=== PATIENT | female | born 1990 | race Caucasian/White ===

== ENCOUNTER 2021-06-06 15:52 | Outpatient (CLI) | payer OTHER, SELFPAY ==
--- NOTE | ~2021-06-06 | US_ITS ---
EXAMINATION: US OB <=14 wk fetus w TV EXAM DATE: 06/06/2021 16:36 INDICATION: Pelvic pain. Uncertain dates. 1st trimester. TECHNIQUE: Pelvic obstetrical transabdominal sonogram was performed by a technologist. There are mu ltiple grayscale and Doppler images available for interpretation. There are no earlier studies of th is gestation for comparison. FINDINGS: Uterus measures 9.6 x 5.9 x 6.6 cm. There is intrauterine gestation sac, mean sac diameter 2.9 cm corresponding to estimated gestational age 8 weeks 0 days. There is abnormal small yolk sac id entified and discordant size of possible pole measuring 5 mm in length for estimated age 6 week s 2 days, no heart rate identified. There is small subchorionic hematoma measuring 1.1 x 0.7 x 0.6 cm. There is a cystic right ovarian lesion measuring 1.1 x 1.3 x 1.4 cm with mild complexity, no yolk sac or pole identified within this. Probably the corpus luteal cyst. There is surrounding hypervas cularity. Left ovary is morphologically normal with low resistance Doppler flow confirmed. IMPRESSION: 1. Intrauterine gestation sac with discordant sac and pole sizes, no cardiac activity id entified and small subchorionic hematoma. Poor prognostic indicators for this . 2. Right ovarian cystic lesion probably corpus luteal cyst. 3. Follow-up as indicated clinically. Reviewed, dictated and finalized at location B. [employer] IMPRESSION: 1. Intrauterine gestation sac with discordant sac and pole sizes, no fet al cardiac activity identified and small subchorionic hematoma. Poor prognostic indicators for this . 2. Right ovarian cystic lesion probably corpus luteal cyst. 3. Follow-up as indicated clinically.
== END 2021-06-06 15:53 | disposition home or self-care (01) ==
PROVIDERS: Visit Provider Nurse Practitioner
DX: R10.2 Pelvic and perineal pain (principal); Z36.87 Encounter for antenatal screening for uncertain dates
CPT/HCPCS: 36415; 76801; 76817; 84702; 86850; 86900; 86901

== ENCOUNTER 2021-06-09 15:51 | Outpatient (CLI) | payer OTHER, SELFPAY | END 2021-06-09 15:52 | disposition home or self-care (01) | LOC: ANHLAB 15:54 | PROVIDERS: Visit Provider Nurse Practitioner | DX: O20.0 Threatened abortion (principal); Z3A.00 Weeks of gestation of pregnancy not specified | CPT/HCPCS: 36415; 84702 ==

== ENCOUNTER → 2021-06-10 08:14 | Outpatient (CLI) | payer OTHER, SELFPAY ==
[2021-06-10 16:44] LABS: SARS-CoV-2 RNA PCR Negative
== END ==
PROVIDERS: Visit Provider Obstetrics & Gynecology Gynecology
DX: Z01.812 Encounter for preprocedural laboratory examination (principal); Z20.822 Contact with and (suspected) exposure to COVID-19
CPT/HCPCS: C9803; U0003; U0005

== ENCOUNTER 2021-06-12 01:49 | Day surgery (SDC) | payer OTHER, SELFPAY ==
[2021-06-10 09:53] VITALS: BMI 22.7
--- NOTE | 2021-06-10 10:01 | PC.NURSE ---
Report to the Outpatient Waiting Room, entrance under the green pavilion located off [facility], at time 0730 on date 06/12/21. OR Time: 09. - You will be asked a series of questions to screen for COVID 19 for your protection. - A mask is required within the hospital. - One visitor is allowed at this time. Preoperative COVID Testing Requirements: COVID TEST 06/10 AT 0930 No COVID Test needed if: (proof is required; if not received patient will have Rapid Test prior to entry) - Patient has received COVID Vaccine at least 14 days prior to procedure date or - Patient has positive COVID test result within last 90 days of surgery date. COVID Test needed if above criteria is not met If not COVID vaccinated a COVID test must be conducted within 72 hours of surgery and patient is asked to isolate self from time of testing until procedure. You will go to the [facility] for your COVID testing. The [facility] is located at the corner of [address] [facility]. You will only be called if COVID results are positive and your surgeon may reschedule your elective surgery date. Patients may have clear liquids (water, carbonated beverages, clear teas, apple juice) until 3 hours prior to surgery with a maximum of 20 ounces. - No food from midnight until time of surgery Take the following medications with a SIP of water the morning of surgery: NONE Medications to discontinue per physician: N/A Date to take last dose: N/A Please no make-up, nail indonesian, hairspray, perfume, deodorant, or body powder the day of surgery. No jewelry (including any body piercings) or valuables the day of surgery, leave them at home. Please take a shower or bath the night before, or the morning of, surgery with an antibacterial soap. Wear comfortable, loose fitting clothing. - Jewelry must be removed prior to entering the operating room. Rings and piercings that are not removed may be cut off. - The hospital will not accept responsibility for valuables. - Please leave all valuables, including medications, at home the day of surgery. If you are going home after surgery, a licensed route salesman and driver must drive you home. - NO public transportation without another adult. - We recommend that an adult stay with you for 24 hours following discharge. - We also recommend that you do not drive, make important decision, drink alcoholic beverages, or take any drugs that were not prescribed by your health care provider for at least 24 hours after your discharge time. Follow any additional instructions given to you from your surgeon. Telephone instructions given to ARABELLA MOSHER and asked if any additional questions and then verbalized understanding. Patient advised to call surgeon office or pre surgery nurse liaison [phone] if any additional questions.
--- NOTE | 2021-06-12 08:00 | PM.HPGS ---
History of Present Illness History of Present Illness Consent: Risks, benefits, and alternatives have been discussed and questions answered. Patient agrees to proceed with procedure. Chief complaint: missed AB Narrative: Tory Duque is a 31 year old female A1 with missed Ab. Pelvic u/s showed 8 week sac and 6 week pole. HCG is decreasing. Options reviewed. Patient chooses to proceed with suction D&C. Risks of infection, bleeding, perforation, and injury to organs discussed with patient. She agrees to proceed. Review of Systems Review of Systems: not repeated day of surgery; patient states no changes in status [facility] Past Medical History Medical History (Updated 06/12/21 @ 08:04 by Rachel Cannon MD) Tibia/fibula fracture Surgical History Surgical History (Updated 06/12/21 @ 08:03 by Rachel Cannon MD) History of Social History Social History Smoking status: Former smoker Tobacco type: cigarettes Smoking end date: 11/24/20 Additional smoking assessment comments: SOCIAL SMOKER Alcohol intake: current Alcohol use details: 2/MONTH (WHEN NOT ) Substance use: never Substance use type: does not use Living arrangements: with family Spiritual care concerns: No Meds Home Medications and Allergies Home Medications Medication Instructions Recorded Confirmed Type No Home Medications 06/10/21 06/10/21 History Allergies Allergy/AdvReac Type Severity Reaction Status Date / Time morphine Allergy Hives Verified 06/12/21 08:00 Exam Const: General: healthy appearing and alert Orientation/consciousness: patient oriented x3 GI: GI Palp: Yes Soft to palpation, No Tenderness to palpation present (GI) and No Palpable mass present : External Female Exam: normal external appearance Speculum Exam - Vagina: normal appearance of the vagina and normal vaginal discharge Speculum Exam - Cervix: normal appearance of the cervix Bimanual exam- vagina & uterus: uterine size normal and consistency normal Bimanual Exam- Adnexa, other: normal adnexae and No adnexal tenderness Neuro: General: patient oriented x3 Assessment and Plan Assessment and plan (1) Missed : Code(s): O02.1 - Missed Status: Acute Assessment and Plan: Plan to proceed with suction D&C
[2021-06-12] MEDS: LACTATED RINGERS 1,000 ML 30 ML IV CONT (08:14)
[2021-06-12] MEDS: ACETAMINOPHEN 500 MG TABLET 1000 MG PO (08:14)
--- NOTE | 2021-06-12 08:18 | P.PNAN_ITS ---
Anes - Initial Pre Proc Eval Procedure: Operation Date: 06/12/21 09:30 Proposed Procedures p Suction Dilatation and Curettage - Rachel Cannon MD Date/Time: 06/12/21 08:18 Surgeon: Rachel Cannon MD Pre Op Diagnosis: missed AB Patient Data Age: 31 Gender: F Height: 1.7 m Weight: 65.77 kg Allergies Allergy/AdvReac Type Severity Reaction Status Date / Time morphine Allergy Hives Verified 06/12/21 08:00 Home Medications Medication Instructions Recorded Confirmed Type No Home Medications 06/10/21 06/10/21 History Patient hx anesthesia problems: none Family hx anesthesia problems: none Results Review: All pre-operative results and documents have been reviewed as part of the pre-operative evaluation. [facility] Past Medical History Medical History Tibia/fibula fracture Surgical History Surgical History History of Social History Social History Smoking status: Former smoker Tobacco type: cigarettes Smoking end date: 11/24/20 Additional smoking assessment comments: SOCIAL SMOKER Alcohol intake: current Alcohol use details: 2/MONTH (WHEN NOT ) Substance use: never Substance use type: does not use Living arrangements: with family Spiritual care concerns: No Anes - Eval Final PreProcedure Day of Procedure 06/12/21 08:18 Patient weight: normal Heart: regular rate and rhythm Lungs: clear to auscultation Airway: Mallampati scale class II Neurological: alert and oriented Last oral intake: >/= 8 hours ASA classification: II Emergent: no Anesthetic plan: proceed Anesthesia type and monitoring: general GIVS and standard monitoring Results Review: All pre-operative results and documents have been reviewed as part of the pre-operative evaluation. Informed Consent: The patient's anesthetic plan and its attendant risks and benefits were discussed with the patient/family/POA. Questions were solicited and answers provided to the satisfaction of the patient/family/POA.
[2021-06-12 08:27] VITALS: BP 119/70; PULSE 77; RESP 16; TEMP 36.7; O2SAT 99
--- NOTE | 2021-06-12 09:20 | WPDHPUPDATE1 ---
History and Physical Update Update Date/Time: 06/12/21 09:20 History and Physical has been reviewed, including an updated exam of the patient. There are NO changes in the patient's condition. Risks, benefits, and alternatives have been discussed and questions answered. Patient agrees to proceed with procedure.
[2021-06-12] MEDS: KETOROLAC 30 MG/ML VIAL (*BKC) IV PUSH (09:37)
--- NOTE | 2021-06-12 09:42 | W.PM.PROC2 ---
Procedure Note - Detailed Date of Procedure 06/12/21 Pre-op Diagnosis missed AB Post-op Diagnosis same Procedure Performed Suction D&C Surgeon Rachel Cannon MD Anesthesia MAC and local Findings Uterus sounds to 8cm. There are minimal products of conception. Description of Procedure The patient is taken to the operating room and placed under anesthesia in the dorsal lithotomy position. She was prepped and draped in usual sterile fashion. The bivalve speculum was placed in the vagina and the cervix grasped on the anterior lip with a tenaculum. The uterus is sounded to 8cm. The cervix is serially dilated with Hegar to an 8. A 7mm curved suction curette is used to evacuate the uterus until no further products were noted in the tubing. The medium sharp curette is used to sharply curette the endometrium. Minimal materials obtained. One additional pass with the suction curette is taken. No additional products were noted. All instruments are removed. The tenaculum sites required silver nitrate for hemostasis. Sponge, needle, and instrument counts are correct per the OR staff. The patient is awakened from anesthesia and taken to recovery in stable condition. Estimated Blood Loss 50 (50cc products of conception) Drains No Packing No Pathology yes (Products of conception) Complications No immediate complications Condition stable Disposition PACU
[2021-06-12 09:48] VITALS: BP 115/68; PULSE 85; RESP 16; O2SAT 99
[2021-06-12 10:15] VITALS: BP 118/74; PULSE 84; RESP 16; O2SAT 99
[2021-06-12 10:29] VITALS: BP 113/69; PULSE 56; RESP 16
== END 2021-06-12 10:30 | disposition home or self-care (01) ==
PROVIDERS: Visit Provider Obstetrics & Gynecology Gynecology
PROC: (CPT 59812; principal; 2021-06-12 09:30)
DX: O02.1 Missed abortion (principal); Z87.891 Personal history of nicotine dependence
CPT/HCPCS: 59812; 88305; A9270; J1100; J1885; J2250; J2405; J2704; J3010; J7030; J7120

== ENCOUNTER 2023-07-21 15:46 | Outpatient (CLI) | payer OTHER, SELFPAY ==
--- NOTE | ~2023-07-21 | US_ITS ---
EXAMINATION: US OB <=14 wk fetus w TV DATE: 07/21/2023 17:09 INDICATION: First trimester dating TECHNIQUE: Real-time pelvic transabdominal and transvaginal ultrasound was performed. COMPARISON: None. FINDINGS: The uterus measures 8.4 x 5.2 x 6.3 cm. There is an intrauterine gestational sac. A yolk sa c is identified. heart motion is identified measuring 134 beats per minute (bpm) by M-mode Dopp ler. The crown rump length measures 1.7 cm, which correlates with an estimated gestational age of 8 weeks and 1 day(s) (+/-) 5 day(s). The right ovary measures 2.2 x 2.1 x 1.5 cm. The left ovary measures 2.2 x 2.7 x 2.2 cm. There is nor mal vascular flow in the ovaries. There is no free fluid in the pelvis. IMPRESSION: 1. Live intrauterine with an estimated gestational age of 8 weeks and 1 day(s) (+/-) 5 day( s) and an estimated delivery date of 02/29/2024. Reviewed, dictated and finalized at location F. IMPRESSION: 1. Live intrauterine with an estimated gestational age of 8 weeks and 1 day(s) (+/-) 5 day(s) and an estimated delivery date of 02/29/2024.
== END 2023-07-21 15:47 | disposition home or self-care (01) ==
LOC: ANHIMG 15:50
DX: Z36.87 Encounter for antenatal screening for uncertain dates (principal)
CPT/HCPCS: 76801; 76817

== ENCOUNTER 2023-09-09 09:17 | Outpatient (CLI) | payer OTHER, SELFPAY ==
[2023-09-09 10:24] LABS: Basophils Percent Auto 0.3 % (0.2-1.2); Eosinophils Absolute Auto 0.1 K/mm3 (0-0.3); Eosinophils Percent Auto 1.2 % (0-4.4); Hematocrit 40.6 % (37.0-47.0); Immature Granulocyte Absolute 0.06 K/mm3 (0.00-0.031); Immature Granulocyte Percent A 0.5 % (0-0.5); Lymphocytes Absolute Auto 1.98 K/mm3 (0.9-3.2); Lymphocytes Percent Auto 17.6 % (18.3-44.2); Mean Corpuscular HGB Conc 34.5 g/dl (32-36); Mean Platelet Volume 9.8 fl (7.4-10.4); Monocytes Absolute Auto 0.4 K/mm3 (0.1-0.6); Monocytes Percent Auto 3.2 % (2.6-8.5); Neutrophils Absolute Auto 8.7 K/mm3 (1.3-6.7); Neutrophils Percent Auto 77.2 % (45.5-73.1); Platelet Count Result 268 k/mm3 (150-375); Red Blood Count 4.51 M/mm3 (4.2-5.4); Red Cell Distribution Width 11.9 % (11.5-14.5); White Blood Count 11.2 K/mm3 (4.5-10.0)
[2023-09-09 11:16] LABS: HIV 1/2 Ab P24 Ag Result Negative (Negative)
[2023-09-09 11:45] LABS: Hemoglobin A1C 4.8 % (<5.7)
[2023-09-09 11:54] LABS: Vitamin D 25 Hydroxy 27.7 ng/mL
[2023-09-09 12:08] LABS: Thyroid Stimulating Hormone Reflex 0.939 uIU/mL (0.465-4.68)
[2023-09-09 12:16] LABS: Hepatitis B Surface Antigen Negative (Negative); Rubella IgG Antibody 53.6 IU/ML
[2023-09-09 12:25] LABS: Hepatitis C Virus Antibody Negative (Negative)
[2023-09-09 17:11] LABS: Rapid Plasma Reagin Non-Reactive (NonReactive)
== END 2023-09-09 09:18 | disposition home or self-care (01) ==
LOC: ANHLAB 09:19
PROVIDERS: Visit Provider Advanced Practice Midwife
DX: Z36.9 Encounter for antenatal screening, unspecified (principal)
CPT/HCPCS: 36415; 82306; 82728; 83036; 84443; 85025; 86592; 86703; 86762; 86803; 86850; 86900; 86901; 87340; G0432

== ENCOUNTER 2023-10-05 12:30 | Outpatient (CLI) | payer OTHER, SELFPAY ==
--- NOTE | ~2023-10-05 | US_ITS ---
EXAMINATION: US OB /maternal detail DATE: 10/05/2023 14:21 INDICATION: anatomy screen during second trimester TECHNIQUE: Multiple obstetric sonographic images performed. FINDINGS: There is a single living fetus in breech presentation. The placenta is anterior. Placenta previa wit h caudal margin appearing to extend a few millimeters across the internal cervical os. Cervical lengt h measures 3.2cm which is normal. Normal amniotic fluid index of 10.3 cm (5th%-95%: 9.0-8.7 cm at 20 weeks estimated gestational age). heart rate of 135 beats per minute. The following anatomy was identified as normal: Ventricles, choroid plexus, falx and cava septum pellucidum Cerebellum and cisterna magna Nuchal fold Upper lip Spine Heart Diaphragm Stomach Kidneys Bladder 3 vessel cord and cord insertion Bilateral upper and lower extremities including hands and feet The following biometric data were obtained: BPD: 4.6 cm -> 19 weeks 5 days Head circumference: 17.4 cm -> 20 weeks 0 days Abdominal circumference: 14.8 cm -> 20 weeks 0 days Femur length: 3.2 cm -> 19 weeks 6 days These measurements are concordant. Head circumference to abdominal circumference ratio: 1.18 (normal range 1.08-1.26). Estimated weight: 321 g (+/-) 48 g. or 11 oz. (+/-) 2 oz. IMPRESSION: 1. Single living fetus with breech presentation with heart rate of 135 bpm. 2. Gestational age by ultrasound of 19 weeks 6 day(s) (+/-) 1 week 3 day(s) with ultrasound estimat ed date of delivery (GUIDO) of 02/23/2024. Estimated weight is 41st percentile by Hadlock criteri a when 02/22/2024 is used as the GUIDO. Please correlate with clinical information or earlier ultrasoun ds for most accurate GUIDO. 3. Normal survey. 4. Placenta previa with anterior placenta extending a few millimeter across the internal cervical os. 5. Normal amniotic fluid index of 10.3 cm. Reviewed, dictated and finalized at location A. IMPRESSION: 1. Single living fetus with breech presentation with heart rate of 135 b pm. 2. Gestational age by ultrasound of 19 weeks 6 day(s) (+/-) 1 week 3 day(s) w ith ultrasound estimated date of delivery (GUIDO) of 02/23/2024. Estimated weight is 41st percentile by Hadlock criteria when 02/22/2024 is used as the ED D. Please correlate with clinical information or earlier ultrasounds for most a ccurate GUIDO. 3. Normal survey. 4. Placenta previa with anterior placenta extending a few millimeter across the internal cervical os. 5. Normal amniotic fluid index of 10.3 cm.
== END 2023-10-05 12:31 | disposition home or self-care (01) ==
LOC: ANHIMG 12:33
PROVIDERS: Visit Provider Obstetrics & Gynecology Gynecology
DX: O44.42 Low lying placenta NOS or without hemorrhage, second trimester (principal); Z3A.19 19 weeks gestation of pregnancy
CPT/HCPCS: 76805

== ENCOUNTER 2023-11-03 08:03 | Outpatient (CLI) | payer OTHER, SELFPAY ==
--- NOTE | ~2023-11-03 | US_ITS ---
AND LIMITED MATERNAL ULTRASOUND (Doppler ultrasound interrogation techniques used as needed for this exam.) Ordering provider: Rachel Cannon MD History: . PLACENTA PREVIA . Comparison: None. Findings: : Single intrauterine fetus with heart rate measured at 126 bpm which is within normal limits. Presentation: Vertex. Longitudinal lie. Amniotic fluid volume is subjectively within normal limits. The largest pocket is 5.2 cm. . The placenta is anterior. The distance from the cervix is 3.2 cm. IMPRESSION: No definite evidence of placenta previa. Reviewed, dictated and finalized at location A.
== END 2023-11-03 08:04 | disposition home or self-care (01) ==
LOC: ANHIMG 08:05
PROVIDERS: Visit Provider Obstetrics & Gynecology Gynecology
DX: O44.00 Complete placenta previa NOS or without hemorrhage, unspecified trimester (principal)
CPT/HCPCS: 76816

== ENCOUNTER 2023-12-06 09:55 | Outpatient (CLI) | payer OTHER, SELFPAY ==
[2023-12-06 11:27] LABS: Hematocrit 35.4 % (37.0-47.0); Hemoglobin 11.4 g/dL (12.0-15.0)
[2023-12-06 11:40] LABS: Glucose 1 Hour PP 50gm Dose 118 mg/dL
[2023-12-06 12:18] LABS: HIV 1/2 Ab P24 Ag Result Negative (Negative)
[2023-12-06 12:58] LABS: Vitamin D 25 Hydroxy 43.7 ng/mL
[2023-12-07 12:10] LABS: Rapid Plasma Reagin Non-Reactive (NonReactive)
== END 2023-12-06 09:56 | disposition home or self-care (01) ==
LOC: ANHLAB 09:57
PROVIDERS: Visit Provider Obstetrics & Gynecology Gynecology
DX: Z34.93 Encounter for supervision of normal pregnancy, unspecified, third trimester (principal)
CPT/HCPCS: 36415; 82306; 82947; 85014; 85018; 86592; 86703; G0432

== ENCOUNTER 2024-01-27 09:41 | Observation (INO) | payer OTHER, SELFPAY ==
[2024-01-27] VITALS (8 sets, daily range): BP systolic 102–131; BP diastolic 69–87; PULSE 94–153; O2SAT 100; BMI 28.3
--- NOTE | 2024-01-27 12:05 | OBADM ---
This patient, Tory Duque, admitted to the OB room Labor/Delivery/Recovery 119 for observation of contractions. ROM plus was negative. Patient/family oriented to hospital policies and general routines including ID bracelet, bed and alarms, visiting hours, pain management, procedures, bathroom and other care routines, personal items, smoking policy, room service/diet, and visiting hours. Patient/Family are encouraged to report perceived risks to care and to ask questions if they do not understand what they are told or what they should do.
[2024-01-27 12:10] LABS: OBXCEM ROM Plus Negative (Negative)
[2024-01-27] MEDS: TERBUTALINE SULFATE 1 MG/ML VIAL 0.25 MG SUB-Q ×2 (12:39→14:05)
[2024-01-27 13:19] LABS: Add Urine Microscopic? YES; Appearance Urine Clear (Clear); Bacteria Urine None Seen /hpf; Bilirubin Urine Negative (Negative); Blood Urine Non-Hemolyzed Trace (Negative); Color Urine Yellow (Yellow); Glucose Urine UA Negative (Negative); Ketones Urine 2+ mg/dL (Negative); Leukocyte Esterase Ur Trace LEU/UL (Negative); Nitrate Urine Negative (Negative); Non Pathogenic Casts 0-2; Protein Urine Negative (Negative); RBC Urine 0-2 /hpf (0-2); Specific Grav Ur 1.013 (1.001-1.035); Squamous Epithelial Cell Urine Occasional /hpf (Few); Urobilinogen Urine 0.2 mg/dL (<2.0); WBC Urine 0-5 /hpf (0-3); pH Urine 6.5 (5.0-9.0)
--- NOTE | 2024-01-28 08:51 | PM.OBTRLD ---
OB - Triage/Final Diagnosis Visit Information Date of evaluation: 01/28/24 Reason for evaluation: threatened labor Comments/Additional reasons for admission: I have assessed the risk for this patient, Tory Duque, and determined that she would benefit from observation care. Evaluation Laboratory results: Laboratory Tests 01/27/24 01/27/24 10:16 13:04 Urine Color Yellow Urine Appearance Clear Urine pH 6.5 Ur Specific [place] 1.013 Urine Protein Negative Urine Glucose (UA) Negative Urine Ketones 2+ H Ur Blood (Man) Non-hemolyzed trace H Urine Nitrate Negative Urine Bilirubin Negative Urine Urobilinogen 0.2 Leukocyte Esterase Rfl Trace H Urine RBC 0-2 Urine WBC 0-5 Ur Squamous Epith Cells Occasional Urine Bacteria None seen Urine Casts 0-2 Membranes Rupture Rom plus negative Vital signs: Vital Signs - 24 hr 01/27/24 11:26 01/27/24 11:31 01/27/24 12:36 Pulse Rate 106 H 106 H 104 H Blood Pressure 119/87 120/83 131/82 Pulse Oximetry Oxygen Delivery 01/27/24 14:03 01/27/24 14:05 01/27/24 14:08 Pulse Rate 98 Blood Pressure 125/73 Pulse Oximetry 100 100 Oxygen Delivery 01/27/24 14:31 01/27/24 15:01 01/27/24 12:05 Pulse Rate 128 H 153 H Blood Pressure 121/71 102/69 Pulse Oximetry Oxygen Delivery Room Air
== END 2024-01-27 15:49 ==
PROVIDERS: Admitting Provider Obstetrics & Gynecology Gynecology; Visit Provider Obstetrics & Gynecology
DX: O47.03 False labor before 37 completed weeks of gestation, third trimester (principal); Z3A.35 35 weeks gestation of pregnancy
CPT/HCPCS: 81001; 84112; 96372; 99199; G0378; G0379; J3105

== ENCOUNTER 2024-02-05 21:42 | Inpatient (IN) | payer OTHER, SELFPAY ==
[2024-02-05 21:50] VITALS: TEMP 36.6
[2024-02-05 22:16] VITALS: BP 143/92; PULSE 94
[2024-02-05] MEDS: LACTATED RINGERS 1,000 ML 999 ML IV CONT (22:29)
[2024-02-05 22:37] LABS: Basophils Percent Auto 0.3 % (0.2-1.2); Eosinophils Absolute Auto 0.1 K/mm3 (0-0.3); Hemoglobin 11.8 g/dL (12.0-15.0); Immature Granulocyte Absolute 0.06 K/mm3 (0.00-0.031); Immature Granulocyte Percent A 0.5 % (0-0.5); Lymphocytes Absolute Auto 2.22 K/mm3 (0.9-3.2); Lymphocytes Percent Auto 19.3 % (18.3-44.2); Mean Corpuscular HGB Conc 33.7 g/dl (32-36); Mean Corpuscular Hemoglobin 28.9 pg (26-34); Mean Corpuscular Volume 85.8 fl (80-100); Mean Platelet Volume 10.3 fl (7.4-10.4); Monocytes Absolute Auto 0.6 K/mm3 (0.1-0.6); Monocytes Percent Auto 5.4 % (2.6-8.5); Neutrophils Absolute Auto 8.5 K/mm3 (1.3-6.7); Neutrophils Percent Auto 73.5 % (45.5-73.1); Platelet Count Result 258 k/mm3 (150-375); Red Blood Count 4.08 M/mm3 (4.2-5.4); White Blood Count 11.5 K/mm3 (4.5-10.0)
--- NOTE | 2024-02-05 22:57 | LDADM ---
This patient, Tory Duque, was admitted to Labor/Delivery/Recovery 120 on 02/05/24 at 21:42. Plans for labor, pain management and were discussed with patient. Patient/family oriented to hospital policies and general routines including ID bracelet, bed and alarms, visiting hours, pain management, procedures, bathroom and other care routines, personal items, smoking policy, room service/diet and guest tray routines, infant security routines, and visiting hours. Patient/Family are encouraged to report perceived risks to care and to ask questions if they do not understand what they are told or what they should do. See OBIX for further documentation.
[2024-02-05] MEDS: ONDANSETRON INJ 4 MG/2 ML VIAL IV PUSH (23:01)
[2024-02-05 23:18] VITALS: BMI 29.2
[2024-02-05 23:28] LABS: Rapid Plasma Reagin Non-Reactive (NonReactive)
[2024-02-05 23:31] LABS: HIV 1/2 Ab P24 Ag Result Negative (Negative)
[2024-02-06] VITALS (71 sets, daily range): BP systolic 103–142; BP diastolic 60–109; PULSE 58–267; RESP 12–18; TEMP 36.6–36.9; O2SAT 92–100
[2024-02-06] MEDS: fentaNYL CITRATE INJ (*CRX) 100 MCG/2 ML VIAL IV PUSH (02:46)
--- NOTE | 2024-02-06 06:39 | PM.IMHP ---
H&P: HPI History of Present Illness Date/Time: 02/06/24 06:39 Chief Complaint: Labor at 36 and half weeks Narrative: this is a 33-year-old 3 para 1 admitted at 36 and half weeks gestation in active labor. She has had a previous section. She refused terbutaline and Fracisco under cervix to 4cm. The risk of delivery to the baby was reviewed great details by nurses and myself. She also desires permanent sterilization and has signed papers and understands this to be completely irreversible and she does not opt for other nonpermanent methods [facility] Past Medical History Medical History Tibia/fibula fracture Surgical History Surgical History History of Family History Family History Other Patient denies significant medical history Social History Social History Smoking status: Never smoker Tobacco type: cigarettes Smoking end date: 11/24/20 Additional smoking assessment comments: SOCIAL SMOKER Alcohol intake: current Alcohol use details: 2/MONTH (WHEN NOT ) Substance use: never Substance use type: does not use Do You Feel Safe in your Home?: Yes Lack of Transportation: No Lack of Food: Never True Current Housing: I Have Housing Concerned About Future Housing: No Difficulty Paying Gas/Electric Bills: No Difficulty Paying for Meds: No Currently Unemployed: No Education: High School Diploma/GED Difficulty w/ Childcare or Family Care: No Living arrangements: with family Spiritual care concerns: No Meds Home Medications and Allergies Home Medications Medication Instructions Recorded Confirmed Type cholecalciferol (vitamin D3) 1,250 1,250 mcg PO WEEKLY 01/24/24 02/05/24 History mcg (50,000 unit) tablet prenat.vits,mayela,[id number] 1 tablet PO HS 01/24/24 02/05/24 History Allergies Allergy/AdvReac Type Severity Reaction Status Date / Time morphine Allergy Hives Verified 01/24/24 14:29 green grapes Allergy Rash Uncoded 02/05/24 23:18 Vital Signs Vital Signs - 24 hr 02/05/24 22:16 02/06/24 00:16 02/06/24 01:06 Temperature Pulse Rate 94 81 87 Blood Pressure 143/92 H 141/92 H 129/83 Pulse Oximetry Oxygen Delivery 02/06/24 02:00 02/06/24 03:10 02/06/24 03:15 Temperature 98 F Pulse Rate 90 Blood Pressure 126/85 Pulse Oximetry 97 97 Oxygen Delivery 02/06/24 03:20 02/06/24 03:25 02/06/24 03:30 Temperature Pulse Rate Blood Pressure Pulse Oximetry 98 97 96 Oxygen Delivery 02/06/24 03:35 02/06/24 03:40 02/06/24 03:45 Temperature Pulse Rate Blood Pressure Pulse Oximetry 98 95 98 Oxygen Delivery 02/06/24 03:50 02/06/24 03:55 02/06/24 04:00 Temperature Pulse Rate 91 Blood Pressure 137/80 Pulse Oximetry 97 98 97 Oxygen Delivery 02/06/24 04:05 02/06/24 04:10 02/06/24 04:15 Temperature Pulse Rate Blood Pressure Pulse Oximetry 97 97 97 Oxygen Delivery 02/06/24 04:20 02/06/24 04:25 02/06/24 04:30 Temperature Pulse Rate Blood Pressure Pulse Oximetry 98 98 97 Oxygen Delivery 02/06/24 04:35 02/06/24 04:40 02/06/24 04:45 Temperature Pulse Rate Blood Pressure Pulse Oximetry 97 97 97 Oxygen Delivery 02/06/24 04:50 02/06/24 04:55 02/06/24 05:00 Temperature Pulse Rate Blood Pressure Pulse Oximetry 98 98 97 Oxygen Delivery 02/06/24 05:05 02/06/24 05:11 02/06/24 05:13 Temperature Pulse Rate 90 Blood Pressure 136/95 H Pulse Oximetry 99 100 Oxygen Delivery 02/06/24 06:11 02/05/24 21:50 02/05/24 22:56 Temperature 97.8 F Pulse Rate 79 Blood Pressure 133/90 Pulse Oximetry Oxygen Delivery Room Air Exam Const:
[2024-02-06] MEDS: ACETAMINOPHEN 500 MG TABLET 1000 MG PO (07:37)
[2024-02-06] MEDS: LACTATED RINGERS 1,000 ML 125 ML IV CONT ×2 (07:48→08:38)
--- NOTE | 2024-02-06 08:06 | WPDANESEPPF ---
Anes - Initial Pre Proc Eval Date/Time: 02/06/24 08:06 Surgeon: Rachel Cannon MD Pre Op Diagnosis: Labor Patient Data Age: 33 Gender: F Height: 1.68 m Weight: 82 kg Last Vital Signs Temp 36.6 C 02/06/24 02:00 Pulse 79 02/06/24 06:11 BP 133/90 02/06/24 06:11 Pulse Ox 100 02/06/24 05:11 O2 Del Method Room Air 02/05/24 22:56 Allergies Allergy/AdvReac Type Severity Reaction Status Date / Time morphine Allergy Hives Verified 01/24/24 14:29 green grapes Allergy Rash Uncoded 02/05/24 23:18 Home Medications Medication Instructions Recorded Confirmed Type cholecalciferol (vitamin D3) 1,250 1,250 mcg PO WEEKLY 01/24/24 02/05/24 History mcg (50,000 unit) tablet prenat.vits,mayela,hgk-pstl-klpjy 1 tablet PO HS 01/24/24 02/05/24 History Laboratory Tests 02/05/24 22:29 WBC 11.5 H K/mm3 (4.5-10.0) RBC 4.08 L M/mm3 (4.2-5.4) Hgb 11.8 L g/dL (12.0-15.0) Hct 35.0 L % (37.0-47.0) MCV 85.8 fl (80-100) MCH 28.9 pg (26-34) MCHC 33.7 g/dl (32-36) RDW 14.0 % (11.5-14.5) Plt Count 258 k/mm3 (150-375) MPV 10.3 fl (7.4-10.4) Immature Gran % (Auto) 0.5 % (0-0.5) Neut % (Auto) 73.5 H % (45.5-73.1) Lymph % (Auto) 19.3 % (18.3-44.2) Page % (Auto) 5.4 % (2.6-8.5) Eos % (Auto) 1.0 % (0-4.4) Baso % (Auto) 0.3 % (0.2-1.2) Lymph # (Auto) 2.22 K/mm3 (0.9-3.2) [place] # (Auto) 0.6 K/mm3 (0.1-0.6) Eos # (Auto) 0.1 K/mm3 (0-0.3) Baso # (Auto) 0.0 K/mm3 (0.0-0.1) Abs Immat Gran (auto) 0.06 H K/mm3 (0.00-0.031) Absolute Neuts (auto) 8.5 H K/mm3 (1.3-6.7) Absolute Nucleated RBC 0.000 K/mm3 (0.0-0.012) Nucleated RBC % 0.0 % (0.0-0.2) RPR Non-reactive (NonReactive) HIV 1&2 Ab/P24 Ag 4thGn Negative (Negative) Blood Type O Positive Antibody Screen Negative Patient hx anesthesia problems: none Family hx anesthesia problems: none Results Review: All pre-operative results and documents have been reviewed as part of the pre-operative evaluation. [facility] Past Medical History Medical History Tibia/fibula fracture Surgical History Surgical History History of Family History Family History Other Patient denies significant medical history Social History Social History Smoking status: Never smoker Tobacco type: cigarettes Smoking end date: 11/24/20 Additional smoking assessment comments: SOCIAL SMOKER Alcohol intake: current Alcohol use details: 2/MONTH (WHEN NOT ) Substance use: never Substance use type: does not use Do You Feel Safe in your Home?: Yes Lack of Transportation: No Lack of Food: Never True Current Housing: I Have Housing Concerned About Future Housing: No Difficulty Paying Gas/Electric Bills: No Difficulty Paying for Meds: No Currently Unemployed: No Education: High School Diploma/GED Difficulty w/ Childcare or Family Care: No Living arrangements: with family Spiritual care concerns: No Anes - Eval Final PreProcedure Day of Procedure 02/06/24 08:06 Patient weight: overweight Heart: regular rate and rhythm Lungs: clear to auscultation Airway: Mallampati scale class II Neurological: alert and oriented Last oral intake: >/= 8 hours ASA classification: II Emergent: no Anesthetic plan: proceed Anesthesia type and monitoring: regional spinal and standard monitoring Results Review: All pre-operative results and documents have been reviewed as part of the pre-operative evaluation. Informed Consent: The patient's anesthetic plan and its attendant risks and benefits were discussed with the patient/family/POA. Questions were solicite
--- NOTE | 2024-02-06 08:30 | WPDHPUPDATE1 ---
History and Physical Update Update Date/Time: 02/06/24 08:30 History and Physical has been reviewed, including an updated exam of the patient. There are NO changes in the patient's condition. Risks, benefits, and alternatives have been discussed and questions answered. Patient agrees to proceed with procedure.
[2024-02-06] MEDS: ONDANSETRON INJ 4 MG/2 ML VIAL IV PUSH (08:32)
[2024-02-06] MEDS: FAMOTIDINE 20 MG/2 ML VIAL IV PUSH (08:33)
[2024-02-06] MEDS: ceFAZolin 2 GM/D5W 50 ML 2 GM/50 ML BAG IVPB (08:44)
--- NOTE | 2024-02-06 09:38 | W.PM.OBCSD ---
OB - Delivery Note Procedure Delivery date: 02/06/24 Pre-op diagnosis: Other (Labor pre term) Post-op Diagnosis: Same Induction method: None Delivery monitor: External FHT and External Uterine Procedure Performed: Repeat and Tubal Ligation Surgeon: Seymour Nielsen MD Anesthesia type: Spinal Description of Procedure/Findings: patient was admitted in active labor 36 and half weeks gestation she declined treatment with tocolytics. She progressed and also desired tubal ligation and has signed papers prior where reviewed that again. After tape 4% she was taken back and prepped and draped in normal sterile fashion placed in the supine position. Under excellent spinal anesthetic the abdomen was entered in Pfannenstiel fashion progressive layers to the fascia. Fascia incised midline care number not fashion bilaterally. Underlying muscles sharply dissected. Parietal peritoneum awakened clamps and by sharp dissection carried superiorly and inferiorly the dome of the bladder. Bladder blade placed. Bladder blade replaced after bladder flap had been formed. Low-transverse incision made head delivered in ALBERTO position. Anterior posterior shoulder delivered spontaneously. Cord clamped was cut and passed off the table given Apgars of 8 and 9 at 1 and 5minutes respectively. Placenta delivered intact manually. Uterus delivered on the abdomen. After assuring no membranes or debris remained in the uterus, the uterus was closed continuous running locking 0 Vicryl from lateral edge to lateral edge. This followed by 2nd imbricating running locking 0 Vicryl from lateral edge to lateral edge. Hemostasis was assured the fallopian tube on the right was grasped with the midportion a good knuckle of tube was free tied the distal and proximal legs were free tied the portion between cut passed off the table as portion of right fallopian tube. In similar fashion on the left the midportion of the tube was grasped a good knuckle of tube free 5ft formed. And tied the distal and proximal legs were free tied and the portion between removed and passed off as portion of left fallopian tube. Hemostasis was assured. The uterine incision inspected 1 last time noted be hemostatic. Uterus returned the abdomen. Laps removed and accounted for. The fascia then closed with continuous running 0 Vicryl from lateral edge to midline bilaterally. Irrigation subcutaneous layer the skin closed with 4 Monocryl glue. QBL was 65. All sponge, needle, instrument counts were correct. There were no immediate complications. Mom and baby doing fine at the time of dictation Estimated Blood Loss: 655 Drains: No Packing: No Pathology: Yes ( bilateral segments of fallopian tubes) Complications: No immediate complications Condition: Stable Disposition: PACU [place] Baby Date of : 02/06/24 Time of : 09:15 Infant gender: Male Weight (pounds): 7 Weight (ounces): 6 presentation: vertex position: Right Occiput Anterior Placenta delivery description: Manual Removal Cord Vessel Description: 3 Vessels and Other score one minute: 8 score five minutes: 8
[2024-02-06] MEDS: METHYLERGONOVINE MALEATE 0.2 MG/ML VIAL IM (09:55)
[2024-02-06] MEDS: OXYTOCIN 30 UNITS/NS 500 ML 30 UNITS/500 ML BAG 125 UNITS IV CONT (09:59)
[2024-02-06] MEDS: LIDOCAINE 5% PATCH 1 PATCH TRANSDERM (12:00)
[2024-02-06] MEDS: HYDROcodone/acetaminophen (*CRX) 10-325 MG TABLET 1 TAB PO ×4 (12:18→22:30)
[2024-02-06] MEDS: KETOROLAC 15 MG/ML VIAL (*BKC) IV PUSH ×2 (13:50→20:00)
[2024-02-06] MEDS: SIMETHICONE 80 MG TAB.CHEW PO ×3 (13:51→20:00)
[2024-02-06] MEDS: ACETAMINOPHEN 325 MG TABLET 650 MG PO ×2 (13:51→20:00)
[2024-02-06] MEDS: DEXTROSE 5%/0.45% SOD CHL 1,000 ML 125 ML IV CONT (13:51)
[2024-02-06] MEDS: DOCUSATE SODIUM 100 MG CAPSULE PO (16:20)
[2024-02-06] MEDS: ZOLPIDEM TARTRATE (*CRX) 5 MG TABLET PO (21:15)
[2024-02-07] MEDS: ACETAMINOPHEN 325 MG TABLET 650 MG PO ×4 (02:05→20:51)
[2024-02-07] MEDS: KETOROLAC 15 MG/ML VIAL (*BKC) IV PUSH ×2 (02:05→08:20)
[2024-02-07] MEDS: HYDROcodone/acetaminophen (*CRX) 10-325 MG TABLET 1 TAB PO ×2 (02:05→05:40)
[2024-02-07 04:10] VITALS: BP 117/73; PULSE 95; RESP 18; TEMP 36.6; O2SAT 100
[2024-02-07 04:59] LABS: Basophils Percent Auto 0.3 % (0.2-1.2); Eosinophils Absolute Auto 0.2 K/mm3 (0-0.3); Eosinophils Percent Auto 1.4 % (0-4.4); Hematocrit 29.4 % (37.0-47.0); Hemoglobin 9.8 g/dL (12.0-15.0); Immature Granulocyte Absolute 0.06 K/mm3 (0.00-0.031); Immature Granulocyte Percent A 0.5 % (0-0.5); Lymphocytes Absolute Auto 1.71 K/mm3 (0.9-3.2); Lymphocytes Percent Auto 14.5 % (18.3-44.2); Mean Corpuscular HGB Conc 33.3 g/dl (32-36); Mean Corpuscular Hemoglobin 28.9 pg (26-34); Mean Corpuscular Volume 86.7 fl (80-100); Mean Platelet Volume 10.2 fl (7.4-10.4); Monocytes Absolute Auto 0.9 K/mm3 (0.1-0.6); Monocytes Percent Auto 7.6 % (2.6-8.5); Neutrophils Absolute Auto 8.9 K/mm3 (1.3-6.7); Neutrophils Percent Auto 75.7 % (45.5-73.1); Platelet Count Result 206 k/mm3 (150-375); Red Blood Count 3.39 M/mm3 (4.2-5.4); Red Cell Distribution Width 14.3 % (11.5-14.5); White Blood Count 11.8 K/mm3 (4.5-10.0)
[2024-02-07 07:25] VITALS: BP 124/77; PULSE 107; RESP 16; TEMP 36.4; O2SAT 99
[2024-02-07] MEDS: POLYSACCHARIDE IRON COMPLEX 150 MG CAPSULE PO ×2 (08:21→19:17)
[2024-02-07] MEDS: SIMETHICONE 80 MG TAB.CHEW PO ×2 (08:21→19:17)
[2024-02-07] MEDS: MULTIVIT/MIN/PREN/FOL AC/IRON TABLET 1 TAB PO (08:21)
[2024-02-07] MEDS: DOCUSATE SODIUM 100 MG CAPSULE PO ×2 (08:21→19:17)
--- NOTE | 2024-02-07 08:40 | PM.OBPNVD ---
OB - PN: Subj Subjective Date/time seen: 02/07/24 08:40 Patient comments: no complaints and pain well controlled baby status: doing well (off CPAP) OB - PN: Obj Data Labs 02/07/24 04:13 Labs: Laboratory Results - last 24 hr 02/07/24 04:13 WBC 11.8 H RBC 3.39 L Hgb 9.8 L Hct 29.4 L MCV 86.7 MCH 28.9 MCHC 33.3 RDW 14.3 Plt Count 206 MPV 10.2 Immature Gran % (Auto) 0.5 Neut % (Auto) 75.7 H Lymph % (Auto) 14.5 L [place] % (Auto) 7.6 Eos % (Auto) 1.4 Baso % (Auto) 0.3 Lymph # (Auto) 1.71 [place] # (Auto) 0.9 H Eos # (Auto) 0.2 Baso # (Auto) 0.0 Abs Immat Gran (auto) 0.06 H Absolute Neuts (auto) 8.9 H Absolute Nucleated RBC 0.000 Nucleated RBC % 0.0 OB - PN A/P Plan day: 1 Plan: routine care Time Spent With Patient Time: Total time spent is greater than 50% in coordination of care (as documented) at patient's floor/unit and/or counseling patient: Exam Narrative: inc c/d/i : Bimanual exam- vagina & uterus: other (Uterus firm, nt @U)
[2024-02-07] MEDS: HYDROcodone/acetaminophen (*CRX) 5-325 MG TABLET 1 TAB PO ×2 (11:51→19:06)
[2024-02-07] MEDS: IBUPROFEN 600 MG TABLET PO ×2 (14:45→20:50)
--- NOTE | 2024-02-07 15:28 | WPDANLDPN2 ---
Anes-Prog Note L&D Date/Time: 02/07/24 15:28 Comfortable throughout: section Neuraxial method: spinal Epidural/Spinal procedure site: clean & non-tender Neuro status: Neuro function grossly intact. Cardiovascular status: normal Respiratory status: normal Airway patency: baseline Mental status: baseline Post-Op hydration status: normal Vital Signs: Last Vital Signs Temp 36.4 C L 02/07/24 07:25 Pulse 107 H 02/07/24 07:25 Resp 16 02/07/24 07:25 BP 124/77 02/07/24 07:25 Pulse Ox 99 02/07/24 07:25 O2 Del Method Room Air 02/06/24 18:30 Pain score (VAS): 4/10 I/O: Intake & Output 02/06/24 02/07/24 02/07/24 23:59 07:59 15:59 Intake Total 2050 1000 Output Total 1750 1600 650 Balance 300 -600 -650 Post-procedural complaints: pruritis moderate, treatment effective Patient feedback: Patient satisfied with anesthetic care.
--- NOTE | 2024-02-07 15:29 | WPDANLDNPN2 ---
Anes-Prog Note L&D-Neuraxial Date/Time: 02/07/24 15:29 Neuraxial medications: intrathecal PF morphine Opiod-related complaints: pruritis moderate, treatment effective Patient feedback: Patient satisfied with post-operative pain management.
[2024-02-07 19:50] VITALS: BP 128/87; PULSE 95; RESP 20; TEMP 36.7; O2SAT 99
[2024-02-07] MEDS: ZOLPIDEM TARTRATE (*CRX) 5 MG TABLET PO (21:25)
[2024-02-08] MEDS: ACETAMINOPHEN 325 MG TABLET 650 MG PO ×4 (02:48→22:25)
[2024-02-08] MEDS: IBUPROFEN 600 MG TABLET PO ×4 (02:48→22:26)
[2024-02-08] MEDS: HYDROcodone/acetaminophen (*CRX) 10-325 MG TABLET 1 TAB PO ×3 (06:08→20:11)
[2024-02-08 07:50] VITALS: BP 121/90; PULSE 97; RESP 18; TEMP 36.2; O2SAT 99
--- NOTE | 2024-02-08 07:54 | PM.OBPNVD ---
OB - PN: Subj Subjective Date/time seen: 02/08/24 07:54 Patient comments: no complaints and pain well controlled baby status: doing well OB - PN: Obj Data Labs 02/07/24 04:13 OB - PN A/P Plan day: 2 Plan: routine care Time Spent With Patient Time: Total time spent is greater than 50% in coordination of care (as documented) at patient's floor/unit and/or counseling patient: Exam Narrative: inc c/d/i : Bimanual exam- vagina & uterus: other (Uterus firm, nt @U)
[2024-02-08] MEDS: MULTIVIT/MIN/PREN/FOL AC/IRON TABLET 1 TAB PO (08:43)
[2024-02-08] MEDS: DOCUSATE SODIUM 100 MG CAPSULE PO ×2 (08:43→16:09)
[2024-02-08] MEDS: POLYSACCHARIDE IRON COMPLEX 150 MG CAPSULE PO ×2 (08:43→16:10)
[2024-02-08] MEDS: SIMETHICONE 80 MG TAB.CHEW PO ×3 (08:43→16:09)
--- NOTE | 2024-02-08 11:00 | PC.NURSE ---
Introductions were made, then consulted with patient to assess needs related to . Mother is pumping and bottle feeding. Encouraged consistent pumping and expectation of greater volumes of milk at 3-4 days. Resources provided for inpatient and outpatient services with the feeding sheet, mom/baby guide, pumping primer handout. Mother voiced understanding of information and will call if there is a request for assistance. Reported to the Primary RN.
[2024-02-08 19:15] VITALS: BP 147/104; PULSE 81; RESP 16; TEMP 36.7; O2SAT 100
[2024-02-08 19:41] LABS: Basophils Absolute Auto 0.1 K/mm3 (0.0-0.1); Basophils Percent Auto 0.6 % (0.2-1.2); Eosinophils Absolute Auto 0.5 K/mm3 (0-0.3); Eosinophils Percent Auto 4.5 % (0-4.4); Hematocrit 28.1 % (37.0-47.0); Hemoglobin 9.4 g/dL (12.0-15.0); Immature Granulocyte Percent A 0.9 % (0-0.5); Lymphocytes Absolute Auto 2.72 K/mm3 (0.9-3.2); Lymphocytes Percent Auto 25.3 % (18.3-44.2); Mean Corpuscular HGB Conc 33.5 g/dl (32-36); Mean Corpuscular Hemoglobin 28.9 pg (26-34); Mean Corpuscular Volume 86.5 fl (80-100); Mean Platelet Volume 9.7 fl (7.4-10.4); Monocytes Absolute Auto 0.6 K/mm3 (0.1-0.6); Monocytes Percent Auto 5.7 % (2.6-8.5); Neutrophils Absolute Auto 6.8 K/mm3 (1.3-6.7); Platelet Count Result 259 k/mm3 (150-375); Red Blood Count 3.25 M/mm3 (4.2-5.4); Red Cell Distribution Width 14.1 % (11.5-14.5); White Blood Count 10.8 K/mm3 (4.5-10.0)
[2024-02-08 19:45] VITALS: BP 154/99
[2024-02-08 19:59] LABS: Alanine Aminotransferase 13 U/L (6-35); Albumin Level 3.1 g/dL (3.5-5.1); Alkaline Phosphatase 132 U/L (38-126); Anion Gap 7 mmol/L (4-12); Aspartate Amino Transferase 22 U/L (14-36); Bilirubin,Total 0.2 mg/dL (0.2-1.3); Blood Urea Nitrogen 6 mg/dL (7-17); Calcium 8.8 mg/dL (8.4-10.2); Carbon Dioxide 23 mmol/L (22-30); Chloride 104 mmol/L (98-107); Estimated CRCL calculation 143 ml/min; Estimated Glomerular Filt Rate > 60; Glucose 76 mg/dL (65-110); Potassium 3.7 mmol/L (3.4-5.0); Sodium 134 mmol/L (137-145); Uric Acid 4.4 mg/dL (2.5-7.5)
[2024-02-08 20:59] VITALS: BP 125/81
[2024-02-09] MEDS: ACETAMINOPHEN 325 MG TABLET 650 MG PO ×2 (05:10→12:01)
[2024-02-09] MEDS: IBUPROFEN 600 MG TABLET PO ×2 (05:11→12:01)
--- NOTE | 2024-02-09 07:47 | PM.OBPNVD ---
OB - PN: Subj Subjective Date/time seen: 02/09/24 07:25 Interval history: Post Day 3 from repeat LTCS with bilateral salpingectomy. Doing well. Urinating without difficulty. Denies passing any large clots. Denies dizziness with ambulating. Tolerating po food and fluids. Bonding with infant. Breast pumping. Patient comments: pain well controlled Allyn baby status: doing well Allyn feeding status: pumping and bottle feeding OB - PN: Obj Data Labs 02/08/24 19:36 02/08/24 19:36 Labs: Laboratory Results - last 24 hr 02/08/24 19:36 WBC 10.8 H RBC 3.25 L Hgb 9.4 L Hct 28.1 L MCV 86.5 MCH 28.9 MCHC 33.5 RDW 14.1 Plt Count 259 MPV 9.7 Immature Gran % (Auto) 0.9 H Neut % (Auto) 63.0 Lymph % (Auto) 25.3 [place] % (Auto) 5.7 Eos % (Auto) 4.5 H Baso % (Auto) 0.6 Lymph # (Auto) 2.72 [place] # (Auto) 0.6 Eos # (Auto) 0.5 H Baso # (Auto) 0.1 Abs Immat Gran (auto) 0.10 H Absolute Neuts (auto) 6.8 H Absolute Nucleated RBC 0.000 Nucleated RBC % 0.0 Sodium 134 L Potassium 3.7 Chloride 104 Carbon Dioxide 23 Anion Gap 7 BUN 6 L Creatinine 0.50 L Estim Creat Clear Calc 143 Estimated GFR > 60 Glucose 76 Uric Acid 4.4 Calcium 8.8 Total Bilirubin 0.2 AST 22 ALT 13 Alkaline Phosphatase 132 H Total Protein 6.0 L Albumin 3.1 L OB - PN A/P Assessment and Plan (1) Delivery by section: Status: Acute (2) Incisional pain: Code(s): L76.82 - Other postprocedural complications of skin and subcutaneous tissue Status: Acute Plan day: 3 Plan: discharge home Time Spent With Patient Time: Total time spent is greater than 50% in coordination of care (as documented) at patient's floor/unit and/or counseling patient: Review of Systems Review of Systems: All systems reviewed & are unremarkable except as noted in HPI and below Exam Const: General: cooperative, no acute distress and awake Orientation/consciousness: patient oriented x3 Limitations: no limitations Resp: Effort & Inspection: normal respiratory effort and able to speak in complete sentences Auscultation: clear to auscultation bilaterally Cardio: Rate: regular rate Peripheral pulses: Peripheral pulses 2+ throughout GI: Inspection: normal to inspection Auscultation: normal bowel sounds : General: Yes bladder normal to palpation Speculum Exam - Vagina: vaginal bleeding Bimanual exam- vagina & uterus: bladder normal to palpation OB/external & speculum: vaginal bleeding Other: Fundus firm Skin: General skin exam: normal color Other: Incision Neuro: General: patient oriented x3 Cognition (Neuro): normal cognition Speech: normal speech Extrem: General: normal to inspection Psych: Appearance: grossly normal Mental Status: mental status grossly normal Speech and movement: Normal speech and movement present Affect: normal affect Attitude: cooperative Thought process: Normal thought process present
--- NOTE | 2024-02-09 07:49 | PM.OBDSVD ---
DS: Admitting Diagnosis Discharge Date 02/09/2024 Admitting Diagnosis labor DS: Discharge Diagnosis Discharge Diagnosis (1) Delivery by section: Status: Acute (2) Incisional pain: Code(s): L76.82 - Other postprocedural complications of skin and subcutaneous tissue Status: Acute (3) Sterilization: Code(s): Z30.2 - Encounter for sterilization Status: Acute OB - DS: Summary Hospital Course Hospital Course: Uncomplicated OB Procedures : Ultrasound OB Procedures Intrapartum: and Tubal ligation OB Procedures: : None Peripartum Data Infant Delivery Method: Section Procedures: Procedures Operation Date: 02/06/24 09:00 Actual Procedure Side Surgeon p Section Not Applicable Seymour Nielsen MD Status at Discharge Functional status at discharge: independent ambulation Overall status at discharge: patient is progressing back to baseline Time Spent with Patient Time attestation: Total time spent providing and/or coordinating discharge services: Exam Const: General: cooperative, no acute distress and awake Orientation/consciousness: patient oriented x3 Limitations: no limitations Resp: Effort & Inspection: normal respiratory effort and able to speak in complete sentences Auscultation: clear to auscultation bilaterally Cardio: Rate: regular rate Peripheral pulses: Peripheral pulses 2+ throughout GI: Inspection: normal to inspection Auscultation: normal bowel sounds : General: Yes bladder normal to palpation Speculum Exam - Vagina: vaginal bleeding Bimanual exam- vagina & uterus: bladder normal to palpation OB/external & speculum: vaginal bleeding Other: Fundus firm Skin: General skin exam: normal color Other: Incision Neuro: General: patient oriented x3 Cognition (Neuro): normal cognition Speech: normal speech Extrem: General: normal to inspection Psych: Appearance: grossly normal Mental Status: mental status grossly normal Speech and movement: Normal speech and movement present Affect: normal affect Attitude: cooperative Thought process: Normal thought process present DS: Data Data Completed and Pending Completed studies during hospitalization: Pending at discharge 02/06/24 09:18 Surgical [PTH] Routine Labs on day of discharge: Labs from last 24 hours 02/08/24 19:36 WBC 10.8 H RBC 3.25 L Hgb 9.4 L Hct 28.1 L MCV 86.5 MCH 28.9 MCHC 33.5 RDW 14.1 Plt Count 259 MPV 9.7 Immature Gran % (Auto) 0.9 H Neut % (Auto) 63.0 Lymph % (Auto) 25.3 [place] % (Auto) 5.7 Eos % (Auto) 4.5 H Baso % (Auto) 0.6 Lymph # (Auto) 2.72 [place] # (Auto) 0.6 Eos # (Auto) 0.5 H Baso # (Auto) 0.1 Abs Immat Gran (auto) 0.10 H Absolute Neuts (auto) 6.8 H Absolute Nucleated RBC 0.000 Nucleated RBC % 0.0 Sodium 134 L Potassium 3.7 Chloride 104 Carbon Dioxide 23 Anion Gap 7 BUN 6 L Creatinine 0.50 L Estim Creat Clear Calc 143 Estimated GFR > 60 Glucose 76 Uric Acid 4.4 Calcium 8.8 Total Bilirubin 0.2 AST 22 ALT 13 Alkaline Phosphatase 132 H Total Protein 6.0 L Albumin 3.1 L Discharge Plan Discharge Attending physician on discharge: Rachel Cannon Consulting providers: Seymour Peralta Discharging Clinician: Nida Britt Anticipated Discharge Date/Time: 02/09/24 13:00 Patient Disposition: Home, Self-Care Activity: may shower, may drive after 2 weeks and pelvic rest Diet: regular Wound Care Instructions: follow printed instructions Discharge Instructions: Continue taking your vitamin and any other supplements as previously directed (Examples: Iron, Vitamin D). You may take Tylenol 1000mg over the counter every 6 hours as needed for pain. Do not exceed 4000mg of Tylenol daily. You may continue using tucks pads and dermoplast spray if needed for a few more days. Depression Notify
[2024-02-09 07:55] VITALS: BP 136/81; PULSE 85; RESP 16; TEMP 36.7; O2SAT 99
[2024-02-09] MEDS: DOCUSATE SODIUM 100 MG CAPSULE PO (08:20)
[2024-02-09] MEDS: POLYSACCHARIDE IRON COMPLEX 150 MG CAPSULE PO (08:20)
[2024-02-09] MEDS: MULTIVIT/MIN/PREN/FOL AC/IRON TABLET 1 TAB PO (08:20)
[2024-02-09] MEDS: SIMETHICONE 80 MG TAB.CHEW PO ×2 (08:21→12:01)
[2024-02-09] MEDS: HYDROcodone/acetaminophen (*CRX) 10-325 MG TABLET 1 TAB PO (08:21)
--- NOTE | 2024-02-09 10:04 | WPDANLDPN2 ---
Anes-Prog Note L&D Date/Time: 02/09/24 10:04 Comfortable throughout: section Neuraxial method: spinal Epidural/Spinal procedure site: clean & non-tender Neuro status: Neuro function grossly intact. Cardiovascular status: normal Respiratory status: normal Airway patency: baseline Mental status: baseline Post-Op hydration status: normal Vital Signs: Last Vital Signs Temp 36.7 C 02/09/24 07:55 Pulse 85 02/09/24 07:55 Resp 16 02/09/24 07:55 BP 136/81 02/09/24 07:55 Pulse Ox 99 02/09/24 07:55 O2 Del Method Room Air 02/09/24 08:24 Pain score (VAS): 1 Post-procedural complaints: pruritis moderate, treatment effective Patient feedback: Patient satisfied with anesthetic care.
--- NOTE | 2024-02-09 10:04 | WPDANLDNPN2 ---
Anes-Prog Note L&D-Neuraxial Date/Time: 02/09/24 10:04 Neuraxial medications: intrathecal PF morphine Opiod-related complaints: none Patient feedback: Patient satisfied with post-operative pain management.
== END 2024-02-09 16:10 | disposition home or self-care (01) | DRG 539 ==
LOC: ANHLDR 02-06 06:33 → ANHOB2 02-06 12:21
PROVIDERS: Admitting Provider Obstetrics & Gynecology; Visit Provider Obstetrics & Gynecology Gynecology
PROC: 10D00Z1 Extraction of Products of Conception, Low, Open Approach (ICD-10-PCS; CPT 59514; principal; 2024-02-06 09:00)
DX: O34.211 Maternal care for low transverse scar from previous cesarean delivery (principal); Z37.0 Single live birth; Z3A.36 36 weeks gestation of pregnancy; Z30.2 Encounter for sterilization
CPT/HCPCS: 36415; 80053; 84550; 85025; 86592; 86703; 86850; 86900; 86901; 88302; A9270; G0432; J0690; J1200; J1885; J2210; J2371; J2405; J2590; J3010; J7120